=== PATIENT | male | born 1980 | race American Indian/Alaskan Native ===

== ENCOUNTER 2021-11-13 15:27 | Emergency (ER) | payer OTHER ==
[2021-11-13 18:13] VITALS: BP 147/54
--- NOTE | 2021-11-13 18:54 | Emergency Department Report ---
ED General Adult HPI - General Chief complaint: Extremity Injury, Lower Stated complaint: LEG SWELLING Time Seen by Provider: 11/13/21 18:33 Source: patient, RN notes reviewed, old records reviewed Mode of arrival: Ambulatory Limitations: No Limitations - History of Present Illness Initial comments: The patient is a pleasant 41-year-old gentleman, with a distant history of hospitalized provoked DVT in 2017, off anticoagulation since 2019, who presents to the ER today with a complaint of intermittent right lower extremity swelling. It is now resolved. Patient currently denies headache, neck pain new/different chest pain, no shortness of breath, travel, surgery, immobilization. Patient recently got insurance and is motivated to follow-up with an outpatient primary care doctor. He does endorse chronic discoloration of the distal posterior right lower extremity, present for 3 to 4 years. However, his chief complaint today is intermittent painless swelling of his right lower extremity, which is now resolved. -: days(s) Consistency: intermittent Improves with: none Worsens with: none Associated Symptoms: denies other symptoms - Related Data Previous Rx's Medication Instructions Recorded Last Taken Type Cyclobenzaprine HCl [Flexeril 5 MG 5 mg PO Q8HR PRN #15 tab 08/29/16 Unknown Rx TAB] Ibuprofen [Motrin] 800 mg PO Q8HR PRN #10 tablet 08/29/16 Unknown Rx Warfarin [Coumadin] 5 mg PO QDAY #30 tablet 08/29/16 Unknown Rx Allergies Allergy/AdvReac Type Severity Reaction Status Date / Time No Known Allergies Allergy Verified 11/13/21 18:13 ED Review of Systems ROS: Stated complaint: LEG SWELLING Other details as noted in HPI Constitutional: denies: fever Eyes: denies: eye discharge ENT: denies: epistaxis Respiratory: denies: cough Cardiovascular: denies: chest pain Gastrointestinal: denies: abdominal pain Musculoskeletal: as per HPI Skin: other (Chronic right lower extremity skin discoloration) Neurological: denies: weakness ED Past Medical Hx - Past Medical History Hx Deep Vein Thrombosis: Yes (R L[facility]) - Social History Smoking Status: Current Every Day Smoker Substance Use Type: Alcohol, Marijuana - Medications Home Medications: Home Medications Medication Instructions Recorded Confirmed Last Taken Type Cyclobenzaprine HCl [Flexeril 5 MG 5 mg PO Q8HR PRN #15 tab 08/29/16 Unknown Rx TAB] Ibuprofen [Motrin] 800 mg PO Q8HR PRN #10 tablet 08/29/16 Unknown Rx Warfarin [Coumadin] 5 mg PO QDAY #30 tablet 08/29/16 Unknown Rx ED Physical Exam - General Limitations: No Limitations General appearance: alert, in no apparent distress - Head Head exam: Present: atraumatic, normocephalic - Eye Eye exam: Present: normal appearance, EOMI. Absent: nystagmus - ENT ENT exam: Present: normal exam, normal orophraynx, mucous membranes moist, normal external ear exam - Neck Neck exam: Present: normal inspection, full ROM. Absent: tenderness, meningismus - Respiratory Respiratory exam: Present: normal lung sounds bilaterally. Absent: respiratory distress, wheezes, rales, rhonchi, stridor, decreased breath sounds - Cardiovascular Cardiovascular Exam: Present: regular rate, normal rhythm, normal heart sounds. Absent: bradycardia, tachycardia, irregular rhythm, systolic murmur, diastolic murmur, rubs, gallop - GI/Abdominal GI/Abdominal exam: Present: soft. Absent: distended, tenderness, guarding, rebound, rigid, pulsatile mass - Rectal Rectal exam: Present: deferred - Extremities Exam Extremities exam: Present: normal inspection (Chronic venous stasis changes noted in the right lower extremity), full ROM, normal capillary refill, pedal edema, other (2+ pulses noted in the bilateral upper and lower extremities. There is no palpable cord. negative Homans sign. Muscular compartments are soft. The pelvis is stable.). Absent: calf tenderness - Back Exam Back exam: Present: normal inspection. Absent: tenderness, CVA tenderness (R), CVA tenderness (L), paraspinal tenderness, vertebral tenderness - Neurological Exam Neurological exam: Present: alert, oriented X3, other (No facial droop. Tongue midline. Extraocular movements intact bilaterally. Facial sensation intact to light touch in V1, V2, V3 distribution bilaterally. 5 and a 5 strength in 4 extremities. Sensation intact to light touch in 4 extremities.). Absent: motor sensory deficit - Psychiatric Psychiatric exam: Present: normal affect, normal mood - Skin Skin exam: Present: warm, dry, intact, other (Hyperpigmentation noted on the right posterior lower extremity). Absent: rash ED Course Vital Signs 11/13/21 11/13/21 11/13/21 18:11 19:11 19:53 Temperature 97.6 F Pulse Rate 80 71 Respiratory 16 Rate Blood Pressure 147/54 O2 Sat by Pulse 98 Oximetry - Reevaluation(s) Reevaluation #1: 11/13/21 19:50 Differential diagnosis, include but not limited to: Encounter for medical screening examination, DVT Assessment and plan: 41-year-old gentleman, who was afebrile, with reassuring vital signs, who is not currently tachycardic, tachypneic or hypoxic, and denies DVT, pulmonary embolism risk factors, low risk by Wells criteria for DVT/PE, presenting with right lower extremity swelling which is now resolved. Patient advised that I find him to be low pretest probability for DVT. He denies chest pain and shortness of breath at this time. Check D-dimer to risk stratify for low risk patient. Discussed this with the patient. Otherwise does not appear to have an emergent medical decompensation at this time. 11/13/21 20:37 D-dimer is negative. Vital signs unremarkable. Repeat physical exam unremarkable. Patient resting comfortably in stretcher in no acute distress. Advised of significance regarding negative D-dimer. Outpatient follow-up with primary care. Return precautions reviewed. All questions answered. ED Medical Decision Making - Lab Data Vital Signs 11/13/21 11/13/21 18:11 19:11 Temperature 97.6 F Pulse Rate 80 Respiratory 16 Rate Blood Pressure 147/54 Labs 11/13/21 19:36 D-Dimer 199.61 Vital Signs 11/13/21 11/13/21 11/13/21 18:11 19:11 19:53 Temperature 97.6 F Pulse Rate 80 71 Respiratory 16 Rate Blood Pressure 147/54 O2 Sat by Pulse 98 Oximetry Critical care attestation.: If time is entered above; I have spent that time in minutes in the direct care of this critically ill patient, excluding procedure time. ED Disposition Clinical Impression: Encounter for medical screening examination, History of swelling of feet Disposition: HOME / SELF CARE / HOMELESS Is pt being admited?: No Does the pt Need Aspirin: No Condition: Good Additional Instructions: Patient may purchase [id number] compression stockings or socks. Recommend follow-up with a primary care doctor within the next 2 weeks. Laboratory studies history and physical exam were not suggestive of lower extremity blood clot/DVT. Please return to the emergency room right away with new pain, worsened pain, migration of pain, projectile vomiting, change in mental status, confusion, inability tolerate liquid feeds, new, worsened or different symptoms not present on the initial emergency room evaluation Referrals: CAMPOS ROLAND MD [Primary Care Provider] - 3-5 Days Forms: Work/School Release Form
== END 2021-11-13 21:11 | disposition home or self-care (01) ==
LOC: ED 15:27
DX: R22.32 Localized swelling, mass and lump, left upper limb (principal); Z00.00 Encounter for general adult medical examination without abnormal findings; F17.200 Nicotine dependence, unspecified, uncomplicated; F10.20 Alcohol dependence, uncomplicated
CPT/HCPCS: 36415; 85379; 99283